=== PATIENT | male | born 1995 | race Caucasian/White ===

== ENCOUNTER 2017-11-05 07:12 | Emergency (ER) | payer SELFPAY ==
[~2017-11-05] VITALS: Ht 180.3 cm; Wt 70.5 kg
[2017-11-05 07:35] VITALS: BP 145/88
[2017-11-05] MEDS ORDERED: IBUPROFEN 800 MG TABLET PO ONE (09:15)
== END 2017-11-05 10:07 | disposition left against medical advice (07) ==
LOC: EMS 07:14
DX: S61.411A Laceration without foreign body of right hand, initial encounter (principal); M79.601 Pain in right arm; W19.XXXA Unspecified fall, initial encounter; Y93.89 Activity, other specified; Y92.89 Other specified places as the place of occurrence of the external cause; Y99.8 Other external cause status; Z53.21 Procedure and treatment not carried out due to patient leaving prior to being seen by health care provider
CPT/HCPCS: 99281